=== PATIENT | male | born 1935 | race Caucasian/White ===

== ENCOUNTER 2017-12-13 11:04 | Outpatient (CLI) | payer MEDICARE ==
[~2017-12-13 11:04] MED LIST: Iopamidol 370 76% 100 ML VIAL ONE
== END 2017-12-13 11:05 | disposition home or self-care (01) ==
LOC: BICCT 11:04
PROVIDERS: ATTEND Thoracic Surgery (Cardiothoracic Vascular Surgery)
DX: I70.211 Atherosclerosis of native arteries of extremities with intermittent claudication, right leg (principal); I70.0 Atherosclerosis of aorta
CPT/HCPCS: 75635; 82565

== ENCOUNTER 2018-07-11 13:01 | Inpatient (IN) | payer MEDICARE ==
--- NOTE | 2018-07-11 14:24 | RAD ---
CHEST 1 VIEW: HISTORY: Chest pain. COMPARISON: 04/04/2015. FINDINGS: Postop midline sternotomy. Borderline heart size. Small bilateral pleural effusions with some bilat eral vascular congestion showing some worsening when compared to the prior study. No new confluent p neumonia. IMPRESSION: Cardiomegaly with mild vascular congestion and small bilateral pleural effusions. No new confluent p neumonia. Postop midline sternotomy. Atherosclerosis of the aorta. POS: OFF
[2018-07-11 14:36] LABS: #Basophils 0.1 thou/uL (0.0-0.2); #Eosinphils 0.2 thou/uL (0.0-0.7); #Lymphocytes 2.2 thou/uL (1.20-3.40); #Monocytes 1.1 thou/uL (0.11-0.59); #Neutrophils 8.2 thou/uL (1.40-6.50); %Basophils 0.5 % (0.0-1.0); %Eosinophils 1.6 % (0.0-10.0); %Lymphocytes 18.4 % (21.0-51.0); %Monocytes 9.4 % (0.0-10.0); %Neutrophils 70.1 % (42.0-75.0); Hemoglobin 9.9 g/dL (14.0-18.0); Mean Corpuscular HGB CONC 30.6 g/dL (32.0-36.0); Mean Corpuscular Hemoglobin 28.5 pg (27.0-31.0); Mean Corpuscular Volume 93.1 fL (78.0-98.0); Mean Platelet Volume 7.9 fL (7.4-10.4); Platelet Count 259 thou/uL (130-400); RBC Distribution Width 15.8 % (11.5-14.5); Red Blood Cell (RBC) Count 3.48 mill/uL (4.70-6.10); White Blood Cell (WBC) Count 11.7 thou/uL (4.8-10.8)
[2018-07-11 14:48] LABS: Bilirubin Negative (Negative); Blood, Urine Negative (Negative); Clarity CLEAR (Clear); Glucose, Urine (Dipstick) Negative (Negative); Leukocyte Negative (Negative); Nitrite Negative (Negative); Protein, Urine (Dipstick) Negative (Neg-Trace); Specific Gravity, Urine 1.011 (1.002-1.036); Urobilinogen 0.2 mg/dL (0.2-1.0); pH, Urine 5.5 (5.0-9.0)
[2018-07-11 15:00] LABS: ALT (SGPT) 14 U/L (8-55); AST (SGOT) 18 U/L (5-34); Albumin 3.4 g/dL (3.4-4.8); Alkaline Phosphatase 120 U/L (40-150); Anion Gap 13 mmol/L (10-20); BUN (Urea Nitrogen) 36 mg/dL (8.4-25.7); CK (CPK) 41 U/L (30-200); Calc. Creatinine Clearance 0 mL/min (70-130); Calcium 8.7 mg/dL (7.8-10.44); Carbon Dioxide 28 mmol/L (23-31); Chloride 101 mmol/L (98-107); Estimated GFR-MDRD 43; Globulin 4.1 g/dL (2.4-3.5); Glucose 88 mg/dL (83-110); Lipase 20 U/L (8-78); Potassium 4.2 mmol/L (3.5-5.1); Protein, Total 7.5 g/dL (5.8-8.1); Sodium 138 mmol/L (136-145)
--- NOTE | 2018-07-11 15:58 | PDOC.FPRHP ---
- History of Present Illness Chief Complaint: SOB History of Present Illness: This is an 83 yo M presenting to the ER with a CC of SOB. The patient stated that his symptoms started about 2- 3 days ago. States he is unable to lie flat due to SBO. He states he has to sleep with 2 pillows or sleeps in a chair. Walking exacerbates SOB. Endorses coughing up beige colored sputum. Denies fever , chills, NVD, abdominal or chest pain. Endorses congestion and headache. Endorse LE swelling, more so in the last 2-3 weeks which has worsened in the last 2-3 days. Patient has been tolerating diet well. Patient has had normal BMs and voiding normally. Patient has PMH significant for CHF, last seen 3 months ago. PCP: Dr. David Castillo in [place], [place]. Cardiologsit: Dr. Leger. Patient is from [place], [place]. ED Course: Lasix IV 40 mg - Allergies/Adverse Reactions Allergies Allergy/AdvReac Type Severity Reaction Status Date / Time codeine Allergy Verified 07/12/18 03:12 [From Tylenol-Codeine] morphine Allergy Verified 07/11/18 19:40 Sulfa (Sulfonamide Allergy Verified 07/11/18 19:40 Antibiotics) - Home Medications Medication Instructions Recorded Confirmed Type Atorvastatin Calcium [Lipitor] 80 mg PO DAILY 03/31/13 07/11/18 History Carvedilol [Coreg] 6.25 mg PO BID 03/31/13 07/11/18 History Multivitamin [Multivitamins] 1 cap PO DAILY 05/18/16 07/11/18 History Ubidecarenone [Co Q-10] 10 mg PO DAILY 05/18/16 07/11/18 History Clopidogrel Bisulfate [Clopidogrel] 75 mg PO DAILY 05/28/16 07/11/18 History Amiodarone [Cordarone] 200 mg PO DAILY 07/11/18 07/11/18 History Aspirin [Ecotrin] 81 mg PO DAILY 07/11/18 07/11/18 History Ferrous Gluconate [Fergon] 324 mg PO BID 07/11/18 07/11/18 History Furosemide 40 mg PO DAILY 07/11/18 07/11/18 History Levothyroxine [Synthroid] 75 mcg PO DAILY 07/11/18 07/11/18 History Lisinopril [Zestril] 20 mg PO DAILY 07/11/18 07/11/18 History - History PMHx: CAD, [place] s/p CABG, PVD, HTN, CHF, HLD, hypothyroidism, CKD3, normocytic anemia PSHx: Quad Bypass 20 years ago ('94), catheterization ('13), L Knee replacement ('04), cataract surgery, L inguinal hernia and umbilical hernia ('17), bilateral LE stent FHx: CAD -mother and father Social: denies alcohol, tobacco or drug use - Review of Systems General: denies: fever/chills, weight/appetite/sleep changes, night sweats, fatigue Eyes: denies: vision changes ENT: reports: nasal congestion, rhinorrhea Respiratory: reports: cough, congestion, shortness of breath, exercise intolerance Cardiovascular: reports: edema, paroxysmal nocturnal dyspnea, orthopnea. denies : chest pain, palpitation Gastrointestinal: denies: nausea, vomiting, diarrhea, constipation, abdominal pain Genitourinary: denies: dysuria Skin: denies: rashes Musculoskeletal: reports: swelling. denies: pain, tenderness - Vital signs BP: 133/91 HR: 64 RR: 18 Tmax: 98.1 Pox: 97% on RA Wt: 85 kg - Physical Exam Constitutional: NAD, awake, alert and oriented, well developed HEENT: normocephalic and atraumatic, PERRLA, EOMI, grossly normal vision, grossly normal hearing, MMM Neck: supple Chest: no-tender to palpation, no lesions Heart: RRR, normal S1/S2, other (3/6 systolic murmur heard best over aortic) Lungs: no respiratory distress, good air movement, no wheezing, no retractions, other -Lungs: crackles heard at b/l lung bases Abdomen: soft, non-tender, bowel sounds present, no masses/distention, no hernias Musculoskeletal: normal tone, ROM grossly normal -Musculoskeletal: 1+ edema to the mid palacios b/l Neurological: no focal deficit Skin: no rash/lesions, good turgor, capillary refill <2 seconds Psychiatric: normal mood and affect, good judgment and insight, intact recent and remote memory FMR H&P: Results - Labs Result Diagrams: 07/12/18 04:37 07/12/18 04:37 Lab results: WBC 11.7 thou/uL (4.8-10.8) H 07/11/18 14:02 Hgb 9.9 g/dL (14.0-18.0) L 07/11/18 14:02 Hct 32.4 % (42.0-52.0) L 07/11/18 14:02 MCV 93.1 fL (78.0-98.0) 07/11/18 14:02 Plt Count 259 thou/uL (130-400) 07/11/18 14:02 Neutrophils % 70.1 % (42.0-75.0) 07/11/18 14:02 Sodium 138 mmol/L (136-145) 07/11/18 14:02 Potassium 4.2 mmol/L (3.5-5.1) 07/11/18 14:02 Chloride 101 mmol/L (98-107) 07/11/18 14:02 Carbon Dioxide 28 mmol/L (23-31) 07/11/18 14:02 BUN 36 mg/dL (8.4-25.7) H 07/11/18 14:02 Creatinine 1.55 mg/dL (0.7-1.3) H 07/11/18 14:02 Glucose 88 mg/dL (83-110) 07/11/18 14:02 Calcium 8.7 mg/dL (7.8-10.44) 07/11/18 14:02 Total Bilirubin 1.0 mg/dL (0.2-1.2) 07/11/18 14:02 AST 18 U/L (5-34) 07/11/18 14:02 ALT 14 U/L (8-55) 07/11/18 14:02 Alkaline Phosphatase 120 U/L (40-150) 07/11/18 14:02 Creatine Kinase 41 U/L (30-200) 07/11/18 14:02 B-Natriuretic Peptide 1243.2 pg/mL (0-100) H 07/11/18 14:02 Serum Total Protein 7.5 g/dL (5.8-8.1) 07/11/18 14:02 Albumin 3.4 g/dL (3.4-4.8) 07/11/18 14:02 Lipase 20 U/L (8-78) 07/11/18 14:02 Urine Ketones Negative mg/dL (Negative) 07/11/18 14:35 Urine Blood Negative (Negative) 07/11/18 14:35 Urine Nitrite Negative (Negative) 07/11/18 14:35 Ur Leukocyte Esterase Negative (Negative) 07/11/18 14:35 - Radiology Interpretation Chest x-ray Status: report reviewed by me (cardiomegaly w/ mild vascular congestion and small b/l plueral effusions, no PNA. atherosclerosis of aorta) FMR H&P: A/P - Problem List (1) Acute exacerbation of CHF (congestive heart failure) Current Visit: Yes Status: Acute Code(s): I50.9 - HEART FAILURE, UNSPECIFIED (2) HTN (hypertension) Current Visit: Yes Status: Acute Code(s): I10 - ESSENTIAL (PRIMARY) HYPERTENSION (3) Normocytic anemia Current Visit: Yes Status: Acute Code(s): D64.9 - ANEMIA, UNSPECIFIED (4) HLD (hyperlipidemia) Current Visit: Yes Status: Acute Code(s): E78.5 - HYPERLIPIDEMIA, UNSPECIFIED (5) CAD (coronary artery disease) Current Visit: Yes Status: Acute Code(s): I25.10 - ATHSCL HEART DISEASE OF [place] CORONARY ARTERY W/O ANG PCTRS (6) History of coronary artery bypass graft Current Visit: Yes Status: Acute (7) PVD (peripheral vascular disease) Current Visit: Yes Status: Acute Code(s): I73.9 - PERIPHERAL VASCULAR DISEASE, UNSPECIFIED (8) Hypothyroid Current Visit: Yes Status: Acute Code(s): E03.9 - HYPOTHYROIDISM, UNSPECIFIED - Plan CHF exacerbation - CXR: cardiomegaly w/ mild vascular congestion and small b/l plueral effusions , no PNA. atherosclerosis of aorta - BNP 1243 - received 40 IV lasix in ED, will continue IV diuresis - strict I/Os, daily weights - to continue IV diuresis, monitor output and adjust as necessary - consult cardiology in am - ER checked out that cardiology would like to evaluate for possible valve replacement as well - per pt, last ECHO 04/2018 but unsure of results. Will not order repeat echo at this time. Normocytic anemia - Hgb 9.9, will continue to monitor - continue home ferrous gluc CKD3 - Cr 1.55, at baseline - will monitor on am labs considering diuresis CAD - continue home ASA 81 mg. Continue home amiodarone, unsure why patient is on this med as he did not endorse any relevant PMH. HTN - BP stable - continue home lisinopril, carvedilol Hypothyroid - continue home synthroid HLD - continue home atorvastatin Diet: HH/fluid restrict Ppx: Lovenox PCP: Dr. David Castillo in [place] Dispo: admit to telemetry FMR H&P: Upper Level - Pertinent history 83 yo male here for SOB for 2 days. More difficulty with activities that do not typically cause SOB such as walking around the house. Also reports recent SOB while sleeping, unable to lay flat while sleeping, requiring 2 pillows or sitting in chair to sleep. Pt has history of CHF, most recent ECHO was Apr 2018 per patient, but records are at cardiologists office. Pt also has hx of CAD, s/p cath and CABG in Mar 2013. - Pertinent findings 133/91 HR: 66 RR: 20 97% on RA TEMP: 98.1 GEN: NAD, AAOx3 CARD: 07/09 ABEBE, RRR PULM: mild diffuse exp wheezing EXT: no cyanosis or edema BNP: 1243 Cr: 1.55 CXR: cardiomegaly with mild vascular congestion and small bilateral pleural effusions; no new confluent PNA. Atherosclerosis of the aorta - Plan Date/Time: 07/11/18 0141 I, Olivier Girard DO, have evaluated this patient and agree with findings/plan as outlined by university internship resident. Pertinent changes/additions are listed here. #CHF exacerbation -lasix -we do not have access to most recent records, so will hold off on ECHO and defer to cardiology -cardiology requested eval for possible valve replacement #Hx of CAD s/p CABG #HTN #HLD #PVD #CKD3 Addendum - Attending - Attending Attestation Date/Time: 07/12/18 0641 I personally evaluated the patient and discussed the management with Dr. Garrett on 07/11. I agree with and repeated the History, Examination, Assessment and Plan documented above with any addition or exceptions noted below.
[2018-07-11] MEDS ORDERED: Furosemide 40 MG/4 ML VIAL ONE (16:31)
[2018-07-11] MEDS ORDERED: Ondansetron ODT 4 MG TAB PO PRN (18:47)
[2018-07-11] MEDS ORDERED: Acetaminophen 325 MG TAB PO PRN (18:47)
[2018-07-11 18:51] VITALS: BMI 27.4
[2018-07-11] MEDS: Atorvastatin Calcium 40 MG TAB PO SCH (21:43)
[2018-07-11] MEDS: Ferrous Gluconate 324 MG TAB PO SCH (21:43)
--- NOTE | 2018-07-12 02:31 | CON ---
DATE OF CONSULTATION: HISTORY OF PRESENT ILLNESS: Shad Ty is an 83-year-old white male who has been followed by Dr. Leger. In 1993, he underwent CABG x4 with MORRISSEY to the LAD and saphenous vein graft to the obtuse marginal and to the right PDA. In March 2013, he was hospitalized here with increased shortness of breath and was found to have nonsustained ventricular tachycardia. During that hospitalization, he underwent cardiac catheterization. The left main was totally occluded. The right coronary artery was totally occluded. MORRISSEY to the LAD was patent with [id number] collaterals. The vein graft to the right coronary artery was occluded. The saphenous graft to the obtuse marginal severe peripheral vascular disease. He has been followed in the office and has moderate aortic stenosis. He now presents complaining of 3 days of increased shortness of breath with exertion. He denies any PND. He has chronic orthopnea and chronic leg edema. He was given 40 mg of Lasix IV in the emergency room and he states his breathing is mildly improved. PAST MEDICAL HISTORY: Coronary artery disease, peripheral vascular disease, hypertension, hyperlipidemia, hypothyroidism, and chronic kidney disease. PAST SURGICAL HISTORY: CABG, left total knee replacement, cataract surgery, left inguinal herniorrhaphy and umbilical hernia repair, femoral endarterectomy. FAMILY HISTORY: Mother and father had coronary artery disease. MEDICATIONS: 1. Amiodarone 200 mg daily. 2. Aspirin 81 daily. 3. Atorvastatin 80 daily. 4. Carvedilol 6.25 b.i.d. 5. Plavix 75 daily. 6. Fergon 324 b.i.d. 7. Furosemide 40 mg daily. 8. Synthroid 75 mcg daily. 9. Zestril 20 daily. 10. CoQ10 daily. 11. Multivitamin daily. SOCIAL HISTORY: He does not smoke or drink. REVIEW OF SYSTEMS: A 10-point review of systems unremarkable. PHYSICAL EXAMINATION: VITAL SIGNS: Blood pressure 141/65, pulse of 70. HEENT: PERRL. NECK: Supple. CHEST: Reveals crackles at the bases. CARDIOVASCULAR: S1 and S2 normal without any S3 or S4. There is a 2 to 3/6 systolic ejection murmur in the aortic area. ABDOMEN: Normal bowel sounds without tenderness or organomegaly. EXTREMITIES: Revealed 1 to 2+ pretibial edema. NEUROLOGICAL: Grossly intact. SKIN: Warm and dry. LABORATORY DATA: EKG revealed normal sinus rhythm with right bundle-branch block, old inferior infarction. Hemoglobin 9.9, hematocrit 32.4, white count 11,700, platelets 259,000. Sodium 138, potassium 4.2, chloride 101, carbon dioxide 28, BUN 36, creatinine 1.55. BNP 1243.2. Troponin I is negative x2. IMPRESSION: 1. Probable diastolic heart failure from aortic stenosis. 2. Moderate aortic stenosis on most recent echocardiogram. 3. Status post coronary artery bypass grafting with right graft occluded in 2012. 4. Severe peripheral vascular disease. 5. Hypertension. 6. Hyperlipidemia. 7. Hypothyroidism. 8. History of nonsustained ventricular tachycardia. PLAN: The patient will be continued on his current medicines. Fast lipid profile will be obtained. Echo will be performed. The patient's renal function needs to be watched closely as he is diuresed. With this episode of heart failure, he certainly may need to undergo repeat catheterization and possible aortic valve replacement. Job ID: [id number]
[2018-07-12 05:14] LABS: #Basophils 0.1 thou/uL (0.0-0.2); #Eosinphils 0.2 thou/uL (0.0-0.7); #Lymphocytes 2.4 thou/uL (1.20-3.40); #Monocytes 1.2 thou/uL (0.11-0.59); #Neutrophils 7.5 thou/uL (1.40-6.50); %Basophils 0.6 % (0.0-1.0); %Eosinophils 1.6 % (0.0-10.0); %Lymphocytes 21.3 % (21.0-51.0); %Monocytes 10.9 % (0.0-10.0); %Neutrophils 65.5 % (42.0-75.0); Hemoglobin 9.3 g/dL (14.0-18.0); Mean Corpuscular HGB CONC 30.5 g/dL (32.0-36.0); Mean Corpuscular Volume 91.7 fL (78.0-98.0); Mean Platelet Volume 7.7 fL (7.4-10.4); Platelet Count 244 thou/uL (130-400); RBC Distribution Width 15.9 % (11.5-14.5); Red Blood Cell (RBC) Count 3.33 mill/uL (4.70-6.10); White Blood Cell (WBC) Count 11.4 thou/uL (4.8-10.8)
--- NOTE | 2018-07-12 05:23 | PDOC.FM ---
- Subjective Subjective: Mr. Jimenez reports continued orthopnea, dyspnea at rest as well. Eating well. Lower extremity edema improving. - Objective MAR Reviewed: Yes Vital Signs & Weight: Vital Signs (12 hours) Temp Pulse Resp BP Pulse Ox 07/12/18 04:37 98.7 F 70 14 128/60 93 L 07/11/18 18:51 98.1 F 70 20 141/65 H 95 Weight Weight 80.83 kg Result Diagrams: 07/12/18 04:37 07/12/18 04:37 Phys Exam - Physical Examination Constitutional: NAD Cardiovascular: RRR systolic ejection murmur Gastrointestinal: soft, non-tender, positive bowel sounds Musculoskeletal: edema present (1+ pitting edema BLE improving) Neurological: non-focal Psychiatric: normal affect Skin: normal turgor Dx/Plan (1) Acute exacerbation of CHF (congestive heart failure) Code(s): I50.9 - HEART FAILURE, UNSPECIFIED Status: Acute (2) HTN (hypertension) Code(s): I10 - ESSENTIAL (PRIMARY) HYPERTENSION Status: Acute (3) Normocytic anemia Code(s): D64.9 - ANEMIA, UNSPECIFIED Status: Acute (4) HLD (hyperlipidemia) Code(s): E78.5 - HYPERLIPIDEMIA, UNSPECIFIED Status: Acute (5) CAD (coronary artery disease) Code(s): I25.10 - ATHSCL HEART DISEASE OF [place] CORONARY ARTERY W/O ANG PCTRS Status: Acute (6) History of coronary artery bypass graft Status: Acute (7) PVD (peripheral vascular disease) Code(s): I73.9 - PERIPHERAL VASCULAR DISEASE, UNSPECIFIED Status: Acute (8) Hypothyroid Code(s): E03.9 - HYPOTHYROIDISM, UNSPECIFIED Status: Acute - Plan Plan: CHF exacerbation - CXR: cardiomegaly w/ mild vascular congestion and small b/l plueral effusions , no PNA. atherosclerosis of aorta - BNP 1243 - strict I/Os, daily weights - to continue IV diuresis, monitor output and adjust as necessary - Appreciate cardiology recommendations - echo pending today Aortic Stenosis - confirmed on previous echo - evaluation for valve replacement by cardiology Normocytic anemia - Hgb 9.9, will continue to monitor - continue home ferrous gluc CKD3 - Cr 1.51, at baseline - will monitor on am labs considering diuresis CAD - continue home ASA 81 mg. Continue home amiodarone, unsure why patient is on this med as he did not endorse any relevant PMH. HTN - BP stable - continue home lisinopril, carvedilol Hypothyroid - continue home synthroid HLD - continue home atorvastatin Diet: HH/fluid restrict Ppx: Lovenox PCP: Dr. David Castillo in [place], [place] Dispo: pending workup per cardiology Addendum - Attending - Attending Attestation Date/Time: 07/12/18 9884 I personally evaluated the patient and discussed the management with Dr. Mckeon. I agree with the History, Examination, Assessment and Plan documented above with any addition or exceptions noted below. Patient is doing well. Will continue IV lasix for diuresis. Echo is pending. Will f/u cardiology recs.
[2018-07-12 05:28] LABS: Anion Gap 13 mmol/L (10-20); BUN (Urea Nitrogen) 38 mg/dL (8.4-25.7); Calc. Creatinine Clearance 41 mL/min (70-130); Calcium 8.5 mg/dL (7.8-10.44); Carbon Dioxide 28 mmol/L (23-31); Cardiac Risk 2.7 (Less than 4.5); Chloride 101 mmol/L (98-107); Cholesterol 80 mg/dl (< 200 Desired); Estimated GFR-MDRD 44; Glucose 94 mg/dL (83-110); HDL Cholesterol 30 mg/dL (>60 Neg Risk); LDL Cholesterol, Calculated 40 mg/dL; Potassium 4.1 mmol/L (3.5-5.1); Sodium 138 mmol/L (136-145); Triglycerides 49 mg/dL (Less than 150)
--- NOTE | 2018-07-12 07:00 | PDOC.CTH ---
Cardiology Progress Note - Subjective Still SOB. Has diuresed some but still crackles noted bilaterally. Echo pending - Objective Vital Signs Temp Pulse Resp BP Pulse Ox 07/12/18 04:37 98.7 F 70 14 128/60 93 L Weight 178 lb 3.2 oz 07/11/18 07/12/18 07/13/18 06:59 06:59 06:59 Intake Total 240 Output Total 550 Balance -310 - Physical Examination General/Neuro: alert & oriented x3 Neck: carotid US brisk, no JVD present Lungs: other: (crackels bilaterally) Heart: PMI normal, RRR Abdomen: NT/ND, soft Extremities: + femoral B - Labs Result Diagrams: 07/12/18 04:37 07/12/18 04:37 Troponin/CKMB Troponin I 0.018 ng/mL (< 0.028) 07/11/18 21:32 - Assessment/Plan Severe CAD s/p CABG SOB Diastolic dysfunction PAD VT Increase IV lasix Check echo Add KCL Pt wtih previous EF 40-45% and moderate On amiodarone fro recurrent VT in the past.
[2018-07-12] MEDS: Enoxaparin Sodium 40 MG/0.4 ML SYRINGE SC SCH (08:44)
[2018-07-12] MEDS: Clopidogrel Bisulfate 75 MG TAB PO SCH (08:44)
[2018-07-12] MEDS: Ferrous Gluconate 324 MG TAB PO SCH ×2 (08:45→21:54)
[2018-07-12] MEDS: Carvedilol 6.25 MG TAB PO SCH ×2 (08:45→18:49)
[2018-07-12] MEDS: Aspirin 81 mg Enteric Coated Tablet PO SCH (08:45)
[2018-07-12] MEDS: Amiodarone 200 MG TAB PO SCH (08:46)
[2018-07-12] MEDS ORDERED: Furosemide 40 MG/4 ML VIAL SLOW IVP SCH (09:00)
[2018-07-12] MEDS: Furosemide 40 MG/4 ML VIAL SLOW IVP SCH ×2 (09:40→12:47)
[2018-07-12] MEDS: Atorvastatin Calcium 40 MG TAB PO SCH (21:54)
[2018-07-13 05:22] LABS: #Basophils 0.1 thou/uL (0.0-0.2); #Eosinphils 0.2 thou/uL (0.0-0.7); #Lymphocytes 2.5 thou/uL (1.20-3.40); #Monocytes 0.9 thou/uL (0.11-0.59); %Basophils 1.3 % (0.0-1.0); %Eosinophils 2.2 % (0.0-10.0); %Lymphocytes 28.8 % (21.0-51.0); %Monocytes 10.2 % (0.0-10.0); %Neutrophils 57.5 % (42.0-75.0); Hemoglobin 9.3 g/dL (14.0-18.0); Mean Corpuscular HGB CONC 30.8 g/dL (32.0-36.0); Mean Corpuscular Hemoglobin 28.3 pg (27.0-31.0); Mean Corpuscular Volume 91.9 fL (78.0-98.0); Mean Platelet Volume 7.8 fL (7.4-10.4); Platelet Count 221 thou/uL (130-400); RBC Distribution Width 15.8 % (11.5-14.5); Red Blood Cell (RBC) Count 3.27 mill/uL (4.70-6.10); White Blood Cell (WBC) Count 8.7 thou/uL (4.8-10.8)
[2018-07-13 05:35] LABS: Anion Gap 12 mmol/L (10-20); BUN (Urea Nitrogen) 36 mg/dL (8.4-25.7); Calc. Creatinine Clearance 36 mL/min (70-130); Calcium 8.3 mg/dL (7.8-10.44); Carbon Dioxide 29 mmol/L (23-31); Chloride 100 mmol/L (98-107); Estimated GFR-MDRD 38; Glucose 80 mg/dL (83-110); Sodium 137 mmol/L (136-145)
--- NOTE | 2018-07-13 05:42 | PDOC.FM ---
- Subjective Subjective: Mr. Ty says his breathing has continued to improve. Slept with head of bed elevated overnight. Has ambulated to bathroom without SOB. - Objective MAR Reviewed: Yes Vital Signs & Weight: Vital Signs (12 hours) Temp Pulse Resp BP Pulse Ox 07/13/18 04:00 63 18 130/60 95 07/12/18 20:00 94 L 07/12/18 19:45 98.1 F 61 16 118/59 L 94 L Weight Weight 79.923 kg I&O: 07/11/18 07/12/18 07/13/18 06:59 06:59 06:59 Intake Total 240 1590 Output Total 550 1250 Balance -310 340 Result Diagrams: 07/13/18 04:34 07/13/18 04:34 Phys Exam - Physical Examination Constitutional: NAD crackles b/l lower lungs Cardiovascular: RRR aortic stenosis murmur Gastrointestinal: soft, non-tender, positive bowel sounds 1+ piting edema BLE Neurological: non-focal Psychiatric: normal affect Skin: normal turgor Dx/Plan (1) Acute exacerbation of CHF (congestive heart failure) Code(s): I50.9 - HEART FAILURE, UNSPECIFIED Status: Acute (2) HTN (hypertension) Code(s): I10 - ESSENTIAL (PRIMARY) HYPERTENSION Status: Acute (3) Normocytic anemia Code(s): D64.9 - ANEMIA, UNSPECIFIED Status: Acute (4) HLD (hyperlipidemia) Code(s): E78.5 - HYPERLIPIDEMIA, UNSPECIFIED Status: Acute (5) CAD (coronary artery disease) Code(s): I25.10 - ATHSCL HEART DISEASE OF [place] CORONARY ARTERY W/O ANG PCTRS Status: Acute (6) History of coronary artery bypass graft Status: Acute (7) PVD (peripheral vascular disease) Code(s): I73.9 - PERIPHERAL VASCULAR DISEASE, UNSPECIFIED Status: Acute (8) Hypothyroid Code(s): E03.9 - HYPOTHYROIDISM, UNSPECIFIED Status: Acute - Plan Plan: CHF exacerbation - CXR: cardiomegaly w/ mild vascular congestion and small b/l plueral effusions , no PNA. atherosclerosis of aorta - BNP 1243 - strict I/Os, daily weights - IV lasix was increased to BID - Appreciate cardiology recommendations - echo taken but not read. Aortic Stenosis - confirmed on previous echo - evaluation for valve replacement by cardiology Normocytic anemia, stable - Hgb 9.9, will continue to monitor - continue home ferrous gluc CKD3 - Cr 1.51 at baseline, 1.7 today - will monitor on am labs considering diuresis CAD - continue home ASA 81 mg. History of recurrent VT Continue home amiodarone HTN - BP stable - continue home lisinopril, carvedilol Hypothyroid - continue home synthroid HLD - continue home atorvastatin Diet: HH/fluid restrict Ppx: Lovenox PCP: Dr. David Castillo in [place], [place] Dispo: pending workup per cardiology Addendum - Attending - Attending Attestation Date/Time: 07/13/18 7571 I personally evaluated the patient and discussed the management with Dr. Mckeon I agree with the History, Examination, Assessment and Plan documented above with any addition or exceptions noted below. Patient diuresing well pending echocardiogram for further Cardiology REc regard Aortic stenosis /insufficiency.
[2018-07-13] MEDS ORDERED: Non-Formulary Item 1 EACH (Atorvastatin Calcium [Lipitor] 80 MG) PO SCH (09:00)
[2018-07-13] MEDS: Levothyroxine Sodium 75 MCG TAB PO SCH (09:38)
[2018-07-13] MEDS: Carvedilol 6.25 MG TAB PO SCH ×2 (09:38→16:43)
[2018-07-13] MEDS: Amiodarone 200 MG TAB PO SCH (09:39)
[2018-07-13] MEDS: Potassium Chloride 20 MEQ TAB PO SCH (09:39)
[2018-07-13] MEDS: Clopidogrel Bisulfate 75 MG TAB PO SCH (09:39)
[2018-07-13] MEDS: Ferrous Gluconate 324 MG TAB PO SCH ×2 (09:39→21:01)
[2018-07-13] MEDS: Aspirin 81 mg Enteric Coated Tablet PO SCH (09:39)
[2018-07-13] MEDS: Furosemide 40 MG/4 ML VIAL SLOW IVP SCH ×2 (09:40→11:53)
[2018-07-13] MEDS: Enoxaparin Sodium 40 MG/0.4 ML SYRINGE SC SCH (09:40)
[2018-07-13] MEDS: Lisinopril 20 MG TAB PO SCH (09:40)
--- NOTE | 2018-07-13 17:00 | PDOC.CTH ---
Cardiology Progress Note - Subjective Pt feels much better today. Much less SOB. AV appears stable. EF near nromal - Objective Vital Signs Temp Pulse Pulse Pulse Resp BP BP 07/13/18 16:43 117/64 07/13/18 15:36 97.6 F 60 24 H 07/13/18 11:20 98.2 F 63 18 07/13/18 10:51 70 64 110/53 L 07/13/18 08:35 07/13/18 07:05 98.3 F 63 18 BP BP Pulse Ox Pulse Ox Pulse Ox 07/13/18 16:43 07/13/18 15:36 117/64 95 07/13/18 11:20 116/56 L 96 07/13/18 10:51 125/58 L 93 L 93 L 07/13/18 08:35 95 07/13/18 07:05 137/60 95 Weight 176 lb 3.2 oz 07/12/18 07/13/18 07/14/18 06:59 06:59 06:59 Intake Total 240 1590 Output Total 550 1250 Balance -310 340 - Physical Examination General/Neuro: alert & oriented x3, NAD Neck: carotid US brisk, no JVD present Lungs: CTA, unlabored respirations Heart: PMI normal, other: (2/6 ABEBE) Abdomen: NT/ND, soft Extremities: + femoral B - Telemetry Telemetry Rhythm: sr - Labs Result Diagrams: 07/13/18 04:34 07/13/18 04:34 Troponin/CKMB Troponin I 0.018 ng/mL (< 0.028) 07/11/18 21:32 - Assessment/Plan SOB Mild CHF CAD s/p CABG PVD Doing well. No new recommendations. Pt likely developed mild CHF type symptoms. Now euvolemic. Ok for dc from CV standpoint. FU in 3-4 weks Resume 40mg PO lasix
[2018-07-13] MEDS: Atorvastatin Calcium 40 MG TAB PO SCH (21:01)
[2018-07-14] MEDS: Levothyroxine Sodium 75 MCG TAB PO SCH (05:04)
--- NOTE | 2018-07-14 05:58 | PDOC.FM ---
- Subjective Subjective: Mr. Ty has no complaints. Says he is ready to go home. SOB improved. - Objective Vital Signs & Weight: Vital Signs (12 hours) Temp Pulse Resp BP Pulse Ox 07/14/18 05:06 97.6 F 70 14 131/57 L 94 L 07/13/18 20:00 96 07/13/18 19:40 98.5 F 65 16 130/58 L 96 Weight Weight 80.331 kg I&O: 07/12/18 07/13/18 07/14/18 06:59 06:59 06:59 Intake Total 240 1590 960 Output Total 550 1250 1575 Balance -310 340 -615 Result Diagrams: 07/13/18 04:34 07/14/18 05:27 Phys Exam - Physical Examination Constitutional: NAD mild crackles Cardiovascular: RRR systolic aortic stenosis murmur Gastrointestinal: soft, non-tender, positive bowel sounds trace edema BLE Neurological: non-focal Psychiatric: normal affect Skin: normal turgor Dx/Plan (1) Acute exacerbation of CHF (congestive heart failure) Code(s): I50.9 - HEART FAILURE, UNSPECIFIED Status: Acute (2) HTN (hypertension) Code(s): I10 - ESSENTIAL (PRIMARY) HYPERTENSION Status: Acute (3) Normocytic anemia Code(s): D64.9 - ANEMIA, UNSPECIFIED Status: Acute (4) HLD (hyperlipidemia) Code(s): E78.5 - HYPERLIPIDEMIA, UNSPECIFIED Status: Acute (5) CAD (coronary artery disease) Code(s): I25.10 - ATHSCL HEART DISEASE OF [place] CORONARY ARTERY W/O ANG PCTRS Status: Acute (6) History of coronary artery bypass graft Status: Acute (7) PVD (peripheral vascular disease) Code(s): I73.9 - PERIPHERAL VASCULAR DISEASE, UNSPECIFIED Status: Acute (8) Hypothyroid Code(s): E03.9 - HYPOTHYROIDISM, UNSPECIFIED Status: Acute - Plan Plan: CHF exacerbation - CXR: cardiomegaly w/ mild vascular congestion and small b/l plueral effusions , no PNA. atherosclerosis of aorta - BNP 1243 - strict I/Os, daily weights - Echo 45-50% EF, mod aortic stenosis. - Cardiology - stable for discharge, no acute intervention necessary Aortic Stenosis - confirmed on previous echo - moderate on echo Normocytic anemia, stable - Hgb 9.9 - continue home ferrous gluc CKD3 - Cr 1.51 at baseline, 1.7 today - will monitor on am labs considering diuresis CAD - continue home ASA 81 mg. History of recurrent VT Continue home amiodarone HTN - BP stable - continue home lisinopril, carvedilol Hypothyroid - continue home synthroid HLD - continue home atorvastatin Diet: HH/fluid restrict Ppx: Lovenox PCP: Dr. David Castillo in [place], [place] Dispo: discharge today Addendum - Attending - Attending Attestation Date/Time: 07/14/18 2396 I personally evaluated the patient and discussed the management with I agree with the History, Examination, Assessment and Plan documented above with any addition or exceptions noted below.
[2018-07-14 06:30] LABS: Anion Gap 13 mmol/L (10-20); BUN (Urea Nitrogen) 37 mg/dL (8.4-25.7); Calc. Creatinine Clearance 36 mL/min (70-130); Calcium 8.6 mg/dL (7.8-10.44); Carbon Dioxide 29 mmol/L (23-31); Chloride 98 mmol/L (98-107); Estimated GFR-MDRD 38; Glucose 86 mg/dL (83-110); Sodium 136 mmol/L (136-145)
[2018-07-14] MEDS: Amiodarone 200 MG TAB PO SCH (09:18)
[2018-07-14] MEDS: Ferrous Gluconate 324 MG TAB PO SCH (09:18)
[2018-07-14] MEDS: Aspirin 81 mg Enteric Coated Tablet PO SCH (09:18)
[2018-07-14] MEDS: Potassium Chloride 20 MEQ TAB PO SCH (09:18)
[2018-07-14] MEDS: Lisinopril 20 MG TAB PO SCH (09:18)
[2018-07-14] MEDS: Furosemide 40 MG/4 ML VIAL SLOW IVP SCH (09:19)
[2018-07-14] MEDS: Carvedilol 6.25 MG TAB PO SCH (09:19)
[2018-07-14] MEDS: Enoxaparin Sodium 40 MG/0.4 ML SYRINGE SC SCH (09:19)
[2018-07-14] MEDS: Clopidogrel Bisulfate 75 MG TAB PO SCH (09:19)
[2018-07-14 12:06] VITALS: TEMP 97.7
[2018-07-14 15:17] VITALS: BP 108/55
--- NOTE | 2018-07-16 14:34 | EKG ---
Test Reason : Blood Pressure : / mmHG Vent. Rate : 064 BPM Atrial Rate : 064 BPM P-R Int : 202 ms QRS Dur : 150 ms QT Int : 460 ms P-R-T Axes : 097 060 -04 degrees QTc Int : 474 ms Normal sinus rhythm Right bundle branch block Inferior infarct , age undetermined Anterior infarct , age undetermined Abnormal ECG Confirmed by HERBERT MAYNARD ([id number]), staff editor ROGERS MCKEE ([id number]) on 07/16/2018 2:34:27 PM Referred By: Confirmed By:HERBERT MAYNARD
== END 2018-07-14 14:25 | disposition home or self-care (01) | DRG 291 ==
LOC: ERS 13:01 → ERHOLD 15:53 → OBSVTOIN 15:53 → 2SW 18:46
PROVIDERS: ADMIT Emergency Medicine; ATTEND Emergency Medicine
DX: I13.0 Hypertensive heart and chronic kidney disease with heart failure and stage 1 through stage 4 chronic kidney disease, or unspecified chronic kidney disease (principal); I50.31 Acute diastolic (congestive) heart failure; I47.2 Ventricular tachycardia; I25.10 Atherosclerotic heart disease of native coronary artery without angina pectoris; I25.2 Old myocardial infarction; I73.9 Peripheral vascular disease, unspecified; E78.5 Hyperlipidemia, unspecified; E03.9 Hypothyroidism, unspecified; N18.3 Chronic kidney disease, stage 3 (moderate); D64.9 Anemia, unspecified; I35.0 Nonrheumatic aortic (valve) stenosis; Z96.652 Presence of left artificial knee joint; Z88.5 Allergy status to narcotic agent; Z88.2 Allergy status to sulfonamides; Z95.1 Presence of aortocoronary bypass graft; Z98.49 Cataract extraction status, unspecified eye; Z79.82 Long term (current) use of aspirin; Z79.02 Long term (current) use of antithrombotics/antiplatelets
CPT/HCPCS: 36415; 71045; 80048; 80053; 80061; 81003; 82550; 83690; 83880; 84443; 84484; 85025; 93005; 93306; 93798; 96374; J1650; J1940

== ENCOUNTER 2020-05-15 15:04 | Outpatient (CLI) | payer MEDICARE ==
--- NOTE | 2020-05-15 15:40 | RAD ---
EXAM: Chest PA and lateral: HISTORY: Shortness of breath COMPARISON: 07/11/2018 FINDINGS: Cardiomegaly postop sternotomy change. Mild vascular congestion. Small bilateral effusions. No focal infiltrate or consolidation. At least 2 small calcified granuloma in the right lung are stable. Degenerative spine changes. IMPRESSION: Cardiomegaly with mild vascular congestion and small bilateral effusions.
== END 2020-05-15 15:05 | disposition home or self-care (01) ==
LOC: BICRAD 15:04
PROVIDERS: ATTEND Physician Assistant
DX: R06.02 Shortness of breath (principal); I51.7 Cardiomegaly; J90 Pleural effusion, not elsewhere classified; R09.89 Other specified symptoms and signs involving the circulatory and respiratory systems
CPT/HCPCS: 71046